=== PATIENT | female | born 1955 | race Caucasian/White ===

== ENCOUNTER → 2018-02-14 | Outpatient (CLI) | payer BC ==
--- NOTE | 2018-02-14 11:11 | PCVCIMAG ---
APPROVED REPORT Study performed: 02/14/2018 10:00:54 EXAM: Comprehensive 2D, Doppler, and color-flow Echocardiogram Patient Location: Echo lab Status: routine BSA: 1.76 HR: 64 bpmBP: 120/80 mmHg Rhythm: NSR Other Information Study Quality: Good Risk Factors: Cardiac Risk Factors: HTN, Hyperlipidemia Indications Hypertension/HDD Carotid Stenosis. Non Q Wave Infarction 2D Dimensions IVSd: 10.80 (7-11mm)LVOT Diam: 22.55 (18-24mm) LVDd: 45.34 mm PWd: 11.30 (7-11mm)Ascending Ao: 36.68 (22-36mm) LVDs: 35.89 (25-40mm) Left Atrium: 35.41 (27-40mm) Aortic Root: 30.16 mm LV Single Plane 4CH: 69.77 % LV Single Plane 2CH: 61.36 % Biplane EF: 65.7 % Volumes Left Atrial Volume (Systole) Single Plane 4CH: 47.66 mLSingle Plane 2CH: 28.85 mL LA ESV Index: 23.00 mL/m2 Aortic Valve AoV Peak Simon.: 1.63 m/s AO Peak Gr.: 10.57 mmHgLVOT Max P.12 mmHg LVOT Max V: 1.24 m/s AZAR Vmax: 3.04 cm2 Mitral Valve E/A Ratio: 0.7 MV Decel. Time: 214.17 ms MV E Max Simon.: 0.76 m/s MV A Simon.: 1.03 m/s TDI E/Lateral E': 10.86E/Medial E': 12.67 Medial E' Simon.: 0.06 m/s Lateral E' Simon.: 0.07 m/s Pulmonary Vein P Vein S: 0.65 m/sP Vein A: 0.33 m/s P Vein D: 0.46 m/sP Vein A Dur.: 69.2 msec P Vein S/D Ratio: 1.41 Tricuspid Valve TR Peak Simon.: 2.52 m/s TR Peak Gr.: 25.47 mmHg Left Ventricle The left ventricle is normal size. There is normal LV segmental wall motion. There is normal left ventricular wall thickness. Left ventricular systolic function is normal. The left ventricular ejection fraction is within the normal range. LVEF is 55-60%. Mild diastolic dysfunction is present (impaired relaxation pattern). Right Ventricle The right ventricle is normal size. The right ventricular systolic function is normal. Atria The left atrium size is normal. The right atrium size is normal. Aortic Valve The aortic valve is normal in structure. No aortic regurgitation is present. There is no aortic valvular stenosis. Mitral Valve The mitral valve is normal in structure. There is no mitral valve regurgitation noted. No evidence of mitral valve stenosis. Tricuspid Valve The tricuspid valve is normal in structure. Trace tricuspid regurgitation. Pulmonary artery pressure is 33mmHg. Pulmonic Valve The pulmonary valve is normal in structure. There is no pulmonic valvular regurgitation. Great Vessels The aortic root is normal in size. IVC is normal in size and collapses >50% with inspiration. Pericardium There is no pericardial effusion. <Conclusion> Left ventricular systolic function is normal. There is normal LV segmental wall motion. LVEF is 55-60%. Mild diastolic dysfunction The aortic valve is normal in structure. No aortic regurgitation or stenosis The mitral valve is normal in structure, no mitral valve regurgitation. Trace tricuspid regurgitation. Pulmonary artery pressure of 33mmHg. There is no pericardial effusion.
--- NOTE | 2018-02-14 11:14 | PCVCIMAG ---
APPROVED REPORT Indications Stenosis Risk Factors Hypertension: Doppler Spectral Velocity Analysis PSV / EDVPSV / EDV ECA (R) 91 / 13 cm/sECA (L) 144 / 20 cm/s dICA (R) 53 / 18 cm/sdICA (L) 102 / 39 cm/s Maia (R) 103 / 32 cm/smICA (L) 100 / 41 cm/s pICA (R) 85 / 27 cm/spICA (L) 96 / 33 cm/s Bulb (R) 59 / 14 cm/sBulb (L) 62 / 16 cm/s dCCA (R) 90 / 22 cm/sdCCA (L) 92 / 26 cm/s mCCA (R) 87 / 22 cm/smCCA (L) 98 / 25 cm/s Vert (R) 51 / 14 cm/sVert (L) 59 / 18 cm/s ICA/CCA 1.14ICA/CCA 1.11 Basic Measurements Blood Pressure: Pulses: Right Left RightLeft Brachial(Sitting) 120/80ykUj173/80mmHgTemporal Real Time B-Mode Imaging Vert. (R)AntegradeVert. (L)Antegrade Findings The right carotid bulb has moderate plaque. The right proximal internal carotid artery shows <40% stenosis. The right common carotid artery shows no significant stenosis. The right external carotid artery shows no significant stenosis. The left carotid bulb has mild plaque. The left proximal internal carotid artery shows no significant stenosis. The left common carotid artery shows no significant stenosis. The left external carotid artery shows no significant stenosis. Conclusion 1. Right internal carotid artery stenosis (<40%) 2. Left internal carotid artery plaquing (<20%) 3. Antegrade vertabral flow
== END | disposition home or self-care (01) ==
LOC: PCVCIMAG 12:53
PROVIDERS: ATTEND Internal Medicine
DX: I65.23 Occlusion and stenosis of bilateral carotid arteries (principal); I10 Essential (primary) hypertension; I25.2 Old myocardial infarction
CPT/HCPCS: 93306; 93880